=== PATIENT | male | born 1980 | race Caucasian/White ===

== ENCOUNTER 2020-04-25 05:25 | Day surgery (SDC) | payer BC, SELFPAY ==
--- NOTE | 2020-03-26 01:11 | HP_ITS ---
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 Social History (Updated 03/26/20 @ 13:[address] Vladislav Link MD) Smoking Status: Never smoker second hand exposure: No alcohol intake: current alcohol intake frequency: a few times a month substance use type: does not use caffeine: Yes what type of physical activity do you participate in: other frequency: does not exercise HPI HPI Surgical H&P: Yes HPI: FERNANDO ENGLISH, is a 39 M who presents to the office today for Evaluation of a hernia and an incision near his umbilicus. Patient had his gallbladder removed in 2002 and has an incision just above his umbilicus. Since October he has noticed a bulge in this area that has been progressively getting larger. He can reduce it it will spontaneously reappear. He has had some abdominal bloating but he has had no change in his bowel or bladder habits. He is not experiencing any nausea or vomiting. ROS General General: No weight change, appetite, fatigue, colon cancer, breast cancer or weakness HEENT HEENT: No difficulty swallowing, eye injury, eye surgery, swollen glands or hoarseness Endo Endocrine: No thyroid disease, diabetes mellitus, thyroid cancer, Hair loss, heat intolerance or cold intolerance Skin Skin: No rash or changing moles Musc Musculoskeletal: No back problems, arthritis, rheumatoid arthritis, gout or joint pain Cardio Cardiovascular: No murmur, pacemaker, heart disease, atrial fibrillation, high blood pressure, heart attack, heart stent, palpitations, shortness of breat with exertion or chest pain Psych Psychiatric: Yes depression; no anxiety or hearing voices Resp Respiratory: No shortness of breath, No sleep apnea, No cough, No COPD, No asthma, No emphysema, No wheezing Gastro Gastrointestinal: Yes abdominal pain, No nausea or vomiting, No diarrhea, No constipation, No blood in stool, No acid reflux, No hemorrhoids, No ulcers, No gallbladder problem, No black,tarry stools Nash Hematologic: No blood thinners, No blood disorders, No bleeding, No anemia, No blood clots Neuro Neurologic: No system reviewed and no additional complaints, except as docu, No as per HPI, No abnormal walking, No abnormal hearing, No abnormal movements, No abnormal speech, No behavioral changes, No burning sensations, No confusion, No seizure-like activity, No unsteadiness, No dizziness, No localized weakness, No frequent falls, No headache(s), No lack of coordination, No loss of vision, No memory loss, No numbness, No other visual disturbances, No radiating pain, No restless legs, No sensory deficit, No fainting, No tingling, No tremor(s), No weakness, No other Exam Const General: no acute distress, well developed, well hydrated Orientation: oriented to person, oriented to place, oriented to time [facility] Head: normocephalic, atraumatic Ears: external ears normal Mouth: moist mucous membranes Eyes Sclera: sclerae normal Pupils: normal by confrontation Neck Neck: no lymphadenopathy noted Neck mass: No Thyroid: thyroid normal, symmetrical Chest Chest palpation & inspection: normal inspection of the chest Resp Effort & Inspection: normal respiratory effort Auscultation: clear to auscultation bilaterally Percussion: percussion normal Cardio Rate: regular rate Rhythm: regular rhythm Heart Sounds: no murmurs GI Palpation: soft, no hepatosplenomegaly, no masses, tender Rectal Exam: other Other: Reducible hernia located just above into the right of his umbilicus. In close proximity to his incision from his gallbladder surgery. It does reduce. It is nontender. Rectal exam deferred. Extrem General: normal to inspection, no clubbing, cyanosis or edema Assessment & Plan Problems 1. Incisional hernia, without obstruction or gangrene K43.2 Plan My plan is to perform And incisional hernia repair with mesh. The planned surgical procedure was discussed extensively with the patient. The risks, benefits, anticipated outcomes and possible complication were mentioned. The patient understands that all hernia repair surgery has a chance of recurrence and/or chronic post-operative pain. My staff has also explained the procedure in understandable terms and the patient was given the option to take printed material concerning the planned procedure. The patient had the opportunity to ask questions concerning the planned procedure. The patient freely consents to the planned procedure. Coding Level of Care Code Off vis,new,level 3 Diagnoses Incisional hernia, without obstruction or gangrene K43.2 ??Obstruction and gangrene presence: without obstruction or gangrene 03/26/20 1311 <Electronically signed by Vladislav perez MD> Date _ Vladislav Link MD I have re-examined the patient. There are no clinical changes since date of exam.
[2020-03-26 12:57] VITALS: BMI 35.2
[2020-04-25] VITALS (10 sets, daily range): BP systolic 98–129; BP diastolic 65–84; PULSE 60–78; RESP 16–18; TEMP 36.1–36.6; O2SAT 93–99; BMI 35.8
[2020-04-25] MEDS: Lactated Ringers 1,000 ML 100 ML IV ×2 (06:01→09:03)
--- NOTE | 2020-04-25 07:14 | DCINST_ITS ---
Discharge Diet: Light diet - advance as tolerated Discharge Activity: Return to Normal Activity, May Drive - when you are no longer taking narcotic pain medications., May Shower - with the bandage in place 1-2 days after surgery. Lifting Restrictions: 20 pounds for 8 weeks. Additional Activity Instructions:: Climbing stairs is fine, walking is encouraged. Sitting in bed may be uncomfortable. Sitting up using your lateral muscles (sitting up sideways) is usually more comfortable. Do not drive, work heavy equipment of sign legal documents for 24 hours. If your hernia repair was an ingunial repair, you may have scrotal swelling, an ice pack and/or athletic support can provide more comfort. Pain medications may cause nausea, you should typically eat light foods as you take your pain medications. Pain medications may also cause constipation. If you have difficulty with this, discuss with your doctor. Call your doctor if your incision/area has: Continuous Slow Oozing, Sudden Increased Bleeding, Increased Pain/ Swelling, Increased Redness, Foul Smelling Discharge Call your doctor if you observe: Fever of 101 or Higher Suture Line Care: Avoid Pulling/Pushing, Avoid Pinching/Bending Additional Dressing/Incision Instructions:: Leave the operative bandage on for 2-3 days. When you remove the bandage, leave the steri-strips on place until your follow up appointment or they fall off. Allergies/Adverse Reactions: Allergies No Known Allergies Allergy (Verified 04/25/20 05:49) Medications to take at Discharge topiramate 100 mg tablet 100 mg PO QHS 03/26/20 venlafaxine 75 mg capsule,extended release 24 hr 75 mg PO DAILY 03/26/20 Oxycodone HCl/Acetaminophen [Percocet 5/325] 1 - 2 tablet PO Q4H PRN PRN 6 Days #30 tablet 04/25/20 The following prescriptions were given: Oxycodone HCl/Acetaminophen [Percocet 5/325] 1 - 2 tablet PO Q4H PRN PRN 6 Days #30 tablet PRN Reason: Pain Transmission Status: Sent to [facility] Primary Care Physician: Peter Razo DO [Primary Care Provider] - Test Results: Test results from this visit will be discussed in further detail at your follow- up appointment, if applicable. Please Follow Up With: Vladislav Link MD - [phone] When: Plan to have a follow up appointment in 7 days. Call to schedule.
--- NOTE | 2020-04-25 07:15 | PCM.OPRPT ---
Problem List (1) Incisional hernia Status: Acute Qualifiers: Obstruction and gangrene presence: without obstruction or gangrene Qualified Code(s): K43.2 - Incisional hernia without obstruction or gangrene Report of Operation Date of Procedure: 04/25/20 Pre-Operative Diagnosis: Incisional hernia Post-Operative Diagnosis: Same Surgery/Procedure Performed:: Incisional hernia repair with mesh Type of Anesthesia:: General Anesthesiologist: Dada Jefferson Estimated Blood Loss (mL): < 25 cc Fluids Replaced: 900 cc LR Description of Procedure: Patient brought in the operating room. Placed in the supine position. Under excellent general trach intubation abdomen was sterilely prepped and draped in usual fashion. Patient had a previous laparoscopic incision supraumbilically. I felt that it was best that I try to attack this from an infraumbilical incision to stay out of the scar tissue. Local was injected infraumbilical incision was made dissection was carried down to the fascia. Incisional defect was identified. I detached the umbilicus from the defect and placed the defect back into the preperitoneal space. I created a preperitoneal window of approximately 3 cm circumferentially around the umbilical defect. I fashioned a ventral X ST hernia patch into the wound. Reference # [id number] lot number [id number]. Her circumferentially tacked the mesh to the surrounding fascia with interrupted #1 Nurolon's. Exparel was injected. Umbilicus was brought together with a 2-0 Vicryl. Deep dermals with 3-0 Vicryl. Then a running 4-0 Monocryl on the skin. Steri-Strips were applied sterile dressings were applied and the patient tolerated the procedure well. - Admit VTE Documentation VTE Present on Admission: No VTE Mechan Device Prophylaxis: SCD's VTE Pharm Prophylaxis ordered?: No Reason prophylaxis not ordered:: Treatment Not Indicated [id number]: Other [place] [id number] + [id number] (MESH)
[2020-04-25] MEDS: Cefazolin 2 GM in 0.9% Normal Saline 100 ML IV (07:22)
[2020-04-25] MEDS: BUPIVACAINE LIPOSOME/PF 20 ML VIAL OPERA.SITE (07:45)
[2020-04-25] MEDS: 0.9% Normal Saline (Pres. free 10 ML Vial (07:45)
[2020-04-25] MEDS: oxyCODONE 5 MG Tablet PO (10:47)
[2020-04-25] MEDS: Acetaminophen 325 MG Tablet PO (10:48)
== END 2020-04-25 11:57 | disposition home or self-care (01) ==
LOC: SDC 05:28 → AC 05:29
PROVIDERS: Anesthesiology; PCP Family Medicine; Referring Provider Surgery; Visit Provider Surgery
PROC: (CPT 49560; principal; 2020-04-25 07:15)
DX: K43.2 Incisional hernia without obstruction or gangrene (principal); Z11.59 Encounter for screening for other viral diseases; F41.9 Anxiety disorder, unspecified; F32.9 Major depressive disorder, single episode, unspecified; Z79.899 Other long term (current) drug therapy
CPT/HCPCS: 49560; 49568; 87635; G2023; J7120; C1781; J2405; J3490; U0003